=== PATIENT | male | born 1960 | race Hispanic/Latino ===

== ENCOUNTER 2019-05-02 19:34 | Emergency (ER) | payer SELFPAY ==
[2019-05-02] MEDS ORDERED: TETRACAINE HCL 0.5% 4ML OPTH ONE (20:04)
[2019-05-02] MEDS ORDERED: FLUORESCEIN SODIUM 1 MG/WRAP ONE (20:05)
--- NOTE | 2019-05-02 20:07 | ER ---
Nurse's Notes [facility] Name: John Mcdonough Age: 58 yrs Sex: Male : 1960 Arrival Date: 05/02/2019 Time: 19:37 Bed 5 Private MD: Diagnosis: Injury of conjunctiva and corneal abrasion without foreign body, right eye Presentation: 05/02 19:42 Presenting complaint: Patient states: Was hit by a hard hat lamp at works in his right ak1 eye, pt reports it feels like there is something in his right eye. Transition of care: patient was not received from another setting of care. Onset of symptoms was May 02, 2019. Risk Assessment: Do you want to hurt yourself or someone else? Patient reports no desire to harm self or others. Initial Sepsis Screen: Does the patient meet any 2 criteria? No. Patient's initial sepsis screen is negative. Does the patient have a suspected source of infection? No. Patient's initial sepsis screen is negative. Care prior to arrival: None. 19:42 Method Of Arrival: Ambulatory ak1 19:42 Acuity: KEO 4 ak1 Triage Assessment: 19:47 General: Appears in no apparent distress. Behavior is calm, cooperative, appropriate ak1 for age. Pain: Complains of pain in right eye. 19:51 EENT: Eyes are tearing on outer aspect of conjuctiva of right eye, iris of right eye ak1 and inner aspect of conjuctiva of right eye Sclera/Cornea are reddened in outer aspect of conjuctiva of right eye, iris of right eye and inner aspect of conjuctiva of right eye. Neuro: No deficits noted. Cardiovascular: No deficits noted. Respiratory: No deficits noted. GI: No signs and/or symptoms were reported involving the gastrointestinal system. : No signs and/or symptoms were reported regarding the genitourinary system. Derm: No signs and/or symptoms reported regarding the dermatologic system. Musculoskeletal: No signs and/or symptoms reported regarding the musculoskeletal system. Historical: - Allergies: 19:45 No Known Allergies; ak1 - Home Meds: 19:45 None [Active]; ak1 - PMHx: 19:45 None; ak1 - PSHx: 19:45 Appendectomy; prostate; ak1 - Immunization history:: Adult Immunizations up to date. - Social history:: Smoking status: Patient/guardian denies using tobacco. - Ebola Screening: : No symptoms or risks identified at this time. - Family history:: not pertinent. - Hospitalizations: : No recent hospitalization is reported. Screenin:47 Abuse screen: Denies threats or abuse. Nutritional screening: No deficits noted. ak1 Tuberculosis screening: No symptoms or risk factors identified. Fall Risk None identified. Assessment: 19:54 General: Appears in no apparent distress. uncomfortable, slender, well groomed, bb Behavior is calm, cooperative. Pain: Complains of pain in right eye. Neuro: Level of Consciousness is awake, alert, obeys commands, Oriented to person, place, time, situation. Cardiovascular: No deficits noted. Respiratory: Respiratory effort is even, unlabored. GI: No signs and/or symptoms were reported involving the gastrointestinal system. Derm: Skin is pink, warm \T\ dry. Musculoskeletal: Circulation, motion, and sensation intact. 20:13 Reassessment: pt verbalized understanding of and agrees to plan of care discharge bb instructions given pt ambulated with steady gait to exit accompanied by spouse. Vital Signs: 19:46 BP 129 / 85; Pulse 70; Resp 18; Temp 98.8; Pulse Ox 97% ; Weight 79.38 kg; Height 5 ft. ak1 7 in. (170.18 cm); Pain 2/10; 19:46 Body Mass Index 27.41 (79.38 kg, 170.18 cm) ak1 ED Course: 19:37 Patient arrived in ED. do 19:45 Triage completed. ak1 19:47 Arm band placed on right wrist. Patient placed in an exam room, on a stretcher, on ak1 pulse oximetry. 19:48 Godfrey López MD is Attending Physician. rn 19:50 Assist provider with eye exam woodlamp, tetracaine at bedside for ERP use. ak1 19:51 Patient has correct armband on for positive identification. Bed in low position. Call ak1 light in reach. Side rails up X 1. Adult w/ patient. 19:54 Rita Pisano, STEPHEN is Primary Nurse. bb 20:06 Dayana Aiken MD is Referral Physician. rn 20:14 Patient did not have IV access during this emergency room visit. bb Administered Medications: 19:52 Drug: Tetracaine Drops 0.5 % 1 drops {Note: at bedside for ERP use.} Route: Ophthalmic; ak1 Site: right eye; 20:14 Follow up: Response: No adverse reaction bb Outcome: 19:51 Condition: good ak1 20:06 Discharge ordered by . rn 20:14 Discharged to home ambulatory, with family. bb 20:14 Instructed on discharge instructions, follow up and referral plans. medication usage. 20:15 Patient left the ED. bb Signatures: Rita Pisano RN RN Godfrey Medellin MD MD rn Krenek, Amber, RN RN ak1 Melissa Hines do
--- NOTE | 2019-05-02 20:07 | EDPHYS ---
Physician Documentation [facility] Name: John Mcdonough Age: 58 yrs Sex: Male : 1960 Arrival Date: 05/02/2019 Time: 19:37 Bed 5 Private MD: ED Physician Godfrey López HPI: 05/02 20:01 This 58 yrs old Male presents to ER via Ambulatory with complaints of Eye rn Problem. 20:01 The patient sustained contusion, to the right eye. Onset: The symptoms/episode rn began/occurred today. Duration: the symptoms are continuous. Aggravated by nothing. Alleviated by nothing. Severity of symptoms: At their worst the symptoms were mild in the emergency department the symptoms are unchanged. The patient has not experienced similar symptoms in the past. Reports headlamp got caught on something, is attached to elastic band, snapped and hit him in right eye, is plastic, nothing broke off. Reports vision is normal. Does not wear contacts. Reports feels foreign body sensation right eye. . Historical: - Allergies: 19:45 No Known Allergies; ak1 - Home Meds: 19:45 None [Active]; ak1 - PMHx: 19:45 None; ak1 - PSHx: 19:45 Appendectomy; prostate; ak1 - Immunization history:: Adult Immunizations up to date. - Social history:: Smoking status: Patient/guardian denies using tobacco. - Ebola Screening: : No symptoms or risks identified at this time. - Family history:: not pertinent. - Hospitalizations: : No recent hospitalization is reported. ROS: 20:01 Constitutional: Negative for fever, chills, and weight loss, Eyes: + injury and pain to rn right eye Exam: 20:01 Visual Acuity: I have reviewed the nursing documentation. Visual acuity is within rn normal limits. 20:01 Constitutional: This is a well developed, well nourished patient who is awake, alert, and in no acute distress. Head/Face: Normocephalic, atraumatic. Eyes: Pupils equal round and reactive to light, extra-ocular motions intact. Lids and lashes normal. + 7 o'clock irregular circular defect right cornea, neg truong's, no signs of open globe, neg ice rink sign, no foreign body identified, + pain resolved after tetracaine. No hyphema. Vital Signs: 19:46 BP 129 / 85; Pulse 70; Resp 18; Temp 98.8; Pulse Ox 97% ; Weight 79.38 kg; Height 5 ft. ak1 7 in. (170.18 cm); Pain 2/10; 19:46 Body Mass Index 27.41 (79.38 kg, 170.18 cm) ak1 MDM: 19:48 Patient medically screened. rn 20:01 Differential diagnosis: Corneal abrasion of Foreign body in. Data reviewed: vital rn signs, nurses notes, and as a result, I will discharge patient. Counseling: I had a detailed discussion with the patient and/or guardian regarding: the historical points, exam findings, and any diagnostic results supporting the discharge/admit diagnosis, the need for outpatient follow up, to return to the emergency department if symptoms worsen or persist or if there are any questions or concerns that arise at home. Response to treatment: the patient's symptoms have markedly improved after treatment, and as a result, I will discharge patient. Special discussion: I discussed with the patient/guardian in detail that at this point there is no indication for admission to the hospital. It is understood, however, that if the symptoms persist or worsen the patient needs to return immediately for re-evaluation. Based on the history and exam findings, there is no indication for further emergent testing or inpatient evaluation. I discussed with the patient/guardian the need to see the opthamologist for further evaluation of the symptoms. 05/02 20:01 Order name: Fluoresene Opth strip; Complete Time: 20:07 rn Administered Medications: 19:52 Drug: Tetracaine Drops 0.5 % 1 drops {Note: at bedside for ERP use.} Route: Ophthalmic; ak1 Site: right eye; 20:14 Follow up: Response: No adverse reaction bb Disposition: 05/02/19 20:06 Discharged to Home. Impression: Injury of conjunctiva and corneal abrasion without foreign body, right eye. - Condition is Stable. - Discharge Instructions: Corneal Abrasion. - Prescriptions for Vigamox 0.5 % Ophthalmic Drops - instill 1 drop by OPHTHALMIC route every 8 hours for 7 days; 5 milliliter. - Medication Reconciliation Form, Thank You Letter, Antibiotic Education, Prescription Opioid Use form. - Follow up: Dayana Aiken MD; When: 5 - 6 days; Reason: Recheck today's complaints, Re-evaluation by your physician. - Problem is new. - Symptoms have improved. Signatures: Rita Pisano RN RN bb Nieto, Roman, MD MD rn Krenek, Amber, RN RN ak1 Corrections: (The following items were deleted from the chart) 20:15 20:06 05/02/2019 20:06 Discharged to Home. Impression: Injury of conjunctiva and bb corneal abrasion without foreign body, right eye. Condition is Stable. Forms are Medication Reconciliation Form, Thank You Letter, Antibiotic Education, Prescription Opioid Use. Follow up: Dayana Aiken; When: 5 - 6 days; Reason: Recheck today's complaints, Re-evaluation by your physician. Problem is new. Symptoms have improved. rn
== END 2019-05-02 20:15 | disposition home or self-care (01) ==
LOC: ER 19:34
DX: S05.01XA Injury of conjunctiva and corneal abrasion without foreign body, right eye, initial encounter (principal); W20.8XXA Other cause of strike by thrown, projected or falling object, initial encounter; Y93.9 Activity, unspecified
CPT/HCPCS: 99283